=== PATIENT | female | born 1985 | race Caucasian/White ===

== ENCOUNTER → 2021-03-26 17:05 | Outpatient (CLI) | payer MEDICAID, SELFPAY ==
[2021-03-26 18:27] LABS: Alanine Aminotransferase 71 U/L (12-78); Albumin Level 4.6 g/dl (3.5-5.0); Albumin/Globulin Ratio 1.6 (1.1-1.8); Alkaline Phosphatase 64 U/L (38-126); Anion Gap 13.1 mEq/L (5-15); Aspartate Amino Transferase 57 U/L (14-36); Bilirubin,Total 0.5 mg/dl (0.2-1.3); Blood Urea Nitrogen 13 mg/dl (7-17); Calcium 9.2 mg/dl (8.4-10.2); Carbon Dioxide 25 mmol/L (22.0-30.0); Chloride 104 mmol/L (98-107); Chol/HDL Ratio 2.9 (1-3.5); Cholesterol 199 mg/dl (140-200); Estimated Glomerular Filt Rate 114 ml/min (>60); GFR (African American) 138 ML/MIN (>60); Globulin 2.9 g/dL (1.3-3.2); Glucose 81 mg/dl (74-100); HDL Cholesterol 69 mg/dl (40-60); Potassium 4.1 mmoL/L (3.5-5.1); Sodium 138 mmol/L (136-145); Total Protein,Serum 7.5 g/dl (6.3-8.2); Triglycerides 83 mg/dl (30-150); VLDL Cholesterol 17 mg/dL (0-40)
[2021-03-26 18:31] LABS: Basophils % 0.5 % (0.1-2.0); Eosinophils # 0.2 K/mm3 (0.0-0.4); Eosinophils % 2.7 % (0.1-12.0); Hemoglobin 13.9 g/dL (12.2-16.2); Lymphocytes # 1.9 K/mm3 (0.7-4.5); Lymphocytes % 31.1 % (10-50); Mean Corpuscular HGB Conc 33.8 g/dL (31.8-35.4); Mean Corpuscular Volume 91.5 fl (81-99); Mean Platelet Volume 8.6 fl (7.4-10.4); Monocytes # 0.5 K/mm3 (0.1-1.0); Monocytes % 7.7 % (1.7-9.3); Neutrophils # 3.6 K/mm3 (1.8-7.8); Platelet Count 239 K/mm3 (142-424); Red Blood Count 4.48 M/mm3 (4.20-5.40); Red Cell Distribution Width 13.3 % (11.5-17.5); White Blood Count 6.3 K/mm3 (4.8-10.8)
[2021-03-26 18:38] LABS: Direct LDL Cholesterol 96.09 mg/dL (100-129)
[2021-03-26 18:44] LABS: 25-OH Vitamin D, Total 56.7 ng/mL (30-100)
[2021-03-26 18:45] LABS: T4 (Thyroxine) 7.6 ug/dl (5.53-11.0)
[2021-03-26 18:59] LABS: Thyroid Stimulating Hormone 1.62 uIU/mL (0.465-4.68)
== END ==
PROVIDERS: Visit Provider Nurse Practitioner Family
DX: B19.20 Unspecified viral hepatitis C without hepatic coma (principal); F31.32 Bipolar disorder, current episode depressed, moderate; Z68.26 Body mass index [BMI] 26.0-26.9, adult
CPT/HCPCS: 80053; 80061; 82306; 84436; 84443; 85025

== ENCOUNTER → 2021-10-21 16:43 | Outpatient (CLI) | payer MEDICAID, SELFPAY | PROVIDERS: Visit Provider Nurse Practitioner | DX: Z20.822 Contact with and (suspected) exposure to COVID-19 (principal) | CPT/HCPCS: C9803; U0003; U0005 ==

== ENCOUNTER 2022-08-18 13:19 | Emergency (ER) | payer MEDICAID, SELFPAY ==
--- NOTE | 2022-08-18 13:49 | EXP.UTC ---
Discharge Plan Disposition Patient Disposition: Home, Self-Care Condition: Good Prescriptions Prescriptions: No Action bupropion HCl 300 mg tablet extended release 24 hr See Rx Instructions .ROUTE .COMPLEX Qty: 30 1RF Dose Instruction: TAKE ONE TABLET BY MOUTH EVERY DAY Rx Instructions: TAKE ONE TABLET BY MOUTH EVERY DAY oxcarbazepine 600 mg tablet See Rx Instructions .ROUTE .COMPLEX Qty: 180 0RF Dose Instruction: TAKE ONE TABLET BY MOUTH TWICE A DAY Rx Instructions: TAKE ONE TABLET BY MOUTH TWICE A DAY Referrals Follow up/Referrals: Drew Bonilal APRN [Primary Care Provider] - See instructions Clinical Impressions Clinical Impression: Concern about STD in female without diagnosis Instructions Patient Instructions: How to Detect and Treat STDs, Facts About Sexually Transmitted Infections Discharge ED Provider: Lorie Ma [facility] General Stated complaint: STD check Time Seen by Provider: 08/18/22 15:00 History of Present Illness Provider Complaint: Pt was in the bathroom for a large amount of time which delayed time to see patient. She states that she has recently been with a partner that she is unsure of his cleanliness. She denies any symptoms at this time. Related Data Previous Rx's Medication Instructions Recorded bupropion HCl 300 mg 24 hr tablet, See Rx Instructions .Route 08/06/22 extended release .COMPLEX #30 tabs oxcarbazepine 600 mg tablet See Rx Instructions .Route 08/06/22 .COMPLEX #180 tabs Allergies Allergy/AdvReac Type Severity Reaction Status Date / Time hydromorphone [From Dilaudid] Allergy Verified 08/18/22 14:32 [facility] Medical History (Updated 08/18/22 @ 15:18 by Lorie Ma APRN) History of anemia Migraine Surgical History (Updated 08/18/22 @ 14:32 by Awilda Glover RN) History of section History of shoulder surgery Social History (Updated 08/18/22 @ 14:32 by Awilda Golver RN) Smoking Status: Never smoker alcohol intake: current substance use type: denies use current occupational status: employed Travel in the last 8 weeks: None ROS Obtained: Yes All systems reviewed & no additional complaints except as documented Constitutional Constitutional: Reports system reviewed and no additional complaints, except as documented Eyes Eyes: Reports system reviewed and no additional complaints, except as documented ENT Ears, Nose, Mouth, and Throat: Reports system reviewed and no additional complaints, except as documented Cardiovascular Cardiovascular: Reports system reviewed and no additional complaints, except as documented Respiratory Respiratory: Reports system reviewed and no additional complaints, except as documented Gastrointestinal Gastrointestingal: Reports system reviewed and no additional complaints, except as documented Genitourinary Female Genitourinary: Reports system reviewed and no additional complaints, except as documented Musculoskeletal Musculoskeletal: Reports system reviewed and no additional complaints, except as documented Integumentary/Breasts Skin/Breast: Reports system reviewed and no additional complaints, except as documented Neurologic Neurologic: Reports system reviewed and no additional complaints, except as documented Endocrine Endocrine: Reports system reviewed and no additional complaints, except as documented Hematologic/Lymphatic Henatologic/Lymphatic: Reports system reviewed and no additional complaints, except as documented Allergic/Immunologic Allergic/Immunologic: Reports system reviewed and no additional complaints, except as documented Physical Exam General General appearance: alert and in no apparent distress Head Head exam: atraumatic and normocephalic Eye Eye exam: Present normal appearance ENT ENT exam: Present normal exam and normal oropharynx Neck Neck exam: Present normal inspection Chest Chest inspection: Present symmetric chest
--- NOTE | 2022-08-18 14:07 | PC.NURSE ---
PATIENT REGISTERED APPROX 45 MINUTES AGO AND JUST SHOWED UP AT [facility] TO BE SEEN AT THIS TIME
[2022-08-18 14:15] VITALS: BP 121/81; PULSE 76; RESP 18; TEMP 36.6; O2SAT 98; BMI 27.4
[2022-08-18 15:00] LABS: Microscopic, Urine URINE MICROSCOPIC (MICROSCOPIC)
[2022-08-18 15:05] LABS: Appearance,Urine SL CLOUDY (Clear); Bilirubin,Urine Negative (Negative); Blood, Urine Negative (Negative); Color,Urine DK YELLOW (Yellow); Glucose,Urine (UA) Negative (Negative); Ketones,Urine Negative (Negative); Leukocyte Esterase,Urine Negative (Negative); Nitrate,Urine Negative (Negative); Protein,Urine Negative (Negative); Specific Gravity, Urine 1.025 (1.005-1.030)
[2022-08-18 15:11] VITALS: BP 121/81; PULSE 76; RESP 18; TEMP 36.6; O2SAT 98
[2022-08-18 15:16] LABS: Bacteria,Urine Trace /lpf; WBC,Urine Occasional #/hpf (0-3)
[2022-08-20 06:10] LABS: HIV Screen 4th Generation wRfx Non Reactive (Non Reactive)
[2022-08-20 22:07] LABS: Neisseria gonorrhoeae, NAA Negative (Negative)
[2022-09-23 08:17] LABS: Hep A Ab, IgM NEGATIVE
[2022-09-23 08:18] LABS: Hepatitis B Core Antibody IgM NEGATIVE; Hepatitis B Surface Antigen NEGATIVE; Hepatitis C Antibody >11.0
== END 2022-08-18 15:23 | disposition home or self-care (01) ==
PROVIDERS: Emergency Provider Nurse Practitioner Family; PCP Nurse Practitioner Family
DX: Z11.3 Encounter for screening for infections with a predominantly sexual mode of transmission (principal)
CPT/HCPCS: 36415; 80074; 81001; 86703; 87491; 87591; 99212; G0432; G0463